=== PATIENT | male | born 1965 | race Caucasian/White ===

== ENCOUNTER 2021-10-23 06:57 | Emergency (ER) | payer SELFPAY ==
[2021-10-23] VITALS (7 sets, daily range): BP systolic 81–141; BP diastolic 58–90; PULSE 84–192; RESP 14–24; TEMP 35.5–36.1; O2SAT 95–97
--- NOTE | ~2021-10-23 | XR_ITS ---
EXAMINATION: XR chest 1V portable EXAM DATE: 10/23/2021 07:41 INDICATION: CP, SOB, tachycardia, smoker, hx heart attack 10yrs ago . TECHNIQUE: Portable AP frontal chest x-ray was obtained. There is no prior study for comparison. FINDINGS: There is cardiomegaly, in particular, prominent right atrial contour. No confluent consolid ation, pneumothorax or pleural effusion suspected. There are no osseous abnormalities identified. IMPRESSION: Cardiomegaly. Reviewed, dictated and finalized at location A. IMPRESSION: Cardiomegaly.
--- NOTE | 2021-10-23 07:13 | ECG_ITS ---
Measurements Intervals [place] Rate: 83 P: 59 NM: 153 QRS: 61 QRSD: 117 T: -62 QT: 431 QTc: 508 Interpretive Statements SINUS RHYTHM INFERIOR MYOCARDIAL INFARCTION , OF INDETERMINATE AGE [40+ ms Q WAVE AND/OR ST/T ABNORMALITY IN II/aVF] T-WAVE CHANGES SUGGESTIVE OFANTEROLATERAL ISCHEMIA [-0.1+ mV T-WAVE IN V3-V6] NO PREVIOUS ECG AVAILABLE FOR COMPARISON Electronically Signed On 10-24-2021 7:02:09 CDT by Radha Wheat M.D.
[2021-10-23 07:32] LABS: Basophils Absolute Auto 0.02 K/mm3 (0.00-0.10); Basophils Percent Auto 0.1 % (0.0-1.0); Hematocrit 42.6 % (40.0-54.0); Hemoglobin 14.2 g/dL (14.0-18.0); Immature Granulocyte Percent A 0.7 % (0.0-0.0); Lymphocytes Percent Auto 21.4 % (18.0-42.0); Mean Corpuscular HGB Conc 33.3 g/dL (32.0-36.0); Mean Corpuscular Hemoglobin 31.6 pg (27.0-31.0); Mean Corpuscular Volume 94.9 fL (78.0-102.0); Mean Platelet Volume 11.9 fl (8.7-11.0); Monocytes Absolute Auto 0.85 K/mm3 (0.10-0.90); Monocytes Percent Auto 6.3 % (2.0-11.0); Neutrophils Absolute Auto 9.7 K/mm3 (1.7-7.2); Neutrophils Percent Auto 71.5 % (50.0-70.0); Platelet Count Result 226 K/mm3 (150-420); Red Blood Count 4.49 M/mm3 (4.70-6.10); Red Cell Distribution Width 13.8 % (11.6-14.4); White Blood Count 13.5 K/mm3 (4.8-10.8)
--- NOTE | 2021-10-23 07:33 | PC.NURSE ---
Pt now saying that he has not eaten anything in 2 days because he's been sick. RN clarifies that pt has been vomiting longer than yesterday. Pt states that he has been vomiting x 2 days. Pt denies diarrhea.
[2021-10-23] MEDS: ASPIRIN 325 MG ENTERIC TABLET PO (07:38)
[2021-10-23] MEDS: dilTIAZem HCl INJ 25 MG/5 ML VIAL 20 MG IV PUSH (07:39)
[2021-10-23] MEDS: SODIUM CHLORIDE 0.9% IV 1,000 ML 999 ML IV CONT (07:42)
[2021-10-23 07:52] LABS: Alanine Aminotransferase 51 U/L (16-63); Albumin Level 3.6 g/dL (3.4-5.0); Alkaline Phosphatase 82 U/L (46-116); Anion Gap 23 mmol/L (8-16); Aspartate Amino Transferase 64 U/L (15-37); Bilirubin,Total 0.8 mg/dL (0.00-1.00); Blood Urea Nitrogen 52 mg/dL (7-18); Calcium 9.8 mg/dL (8.5-10.1); Carbon Dioxide 17 mmol/L (21-32); Chloride 101 mmol/L (98-108); Estimated CRCL calculation 17 ml/min; Estimated Glomerular Filt Rate 14; Glucose 155 mg/dL (70-99); Osmolality Calculated 309 mOsm/kg (285-295); Potassium 4.3 mmol/L (3.5-5.1); Sodium 141 mmol/L (136-145); Total Protein 8.4 g/dL (6.4-8.2)
[2021-10-23 07:54] LABS: Ethanol < 3 mg/dL (0-6)
[2021-10-23 07:56] LABS: NT Pro B Type Natriuretic Pept > 35000 pg/mL (0-125)
[2021-10-23] MEDS: dilTIAZem 100 MG/100 ML 100 MG/100 ML BAG IV CONT (08:00)
[2021-10-23] MEDS: ONDANSETRON INJ 4 MG/2 ML VIAL IV PUSH (08:01)
[2021-10-23] MEDS: SODIUM CHLORIDE 0.9% IV 500 ML 999 ML IV CONT (08:01)
[2021-10-23] MEDS: MIDAZOLAM HCL (*CRX) 2 MG/2 ML VIAL 5 MG IV PUSH (08:06)
--- NOTE | 2021-10-23 08:08 | ECG_ITS ---
Measurements Intervals [place] Rate: 195 P: [place]: 0 QRS: -55 QRSD: 246 T: 93 QT: 330 QTc: 595 Interpretive Statements PROBABLE VENTRICULAR TACHYCARDIA LEFT AXIS DEVIATION [QRS AXIS < -30] INTRAVENTRICULAR CONDUCTION DELAY [130+ ms QRS DURATION NO PREVIOUS ECG AVAILABLE FOR COMPARISON Electronically Signed On 10-24-2021 7:02:52 CDT by Radha Wheat M.D.
--- NOTE | 2021-10-23 08:26 | ED.CHESTPAIN ---
HPI - Chest Pain General Chief Complaint: Chest Pain Stated Complaint: chest pain trouble breathing Time Seen by Provider: 10/23/21 07:02 Source: patient, family, RN notes reviewed and old records reviewed Mode of arrival: ambulatory Limitations: no limitations History of Present Illness complaint: chest pain Pertinent past history: coronary artery disease and prior NV Onset (ago): day(s) (2) Timing of current episode: constant Prior episodes: Yes Onset: during exertion Pain location: left chest Pain radiation: left arm Severity: moderate Pain scale (0-10): 2 Quality: aching, heaviness and dull Relieving factors: nothing Exacerbating factors: nothing Context: non compliance with medication Associated symptoms: nausea and sense of impending doom Treatment prior to arrival: none Risk Factors Coronary artery disease risk factors: smoking history Related Data Home Medications Medication Instructions Recorded Confirmed No Home Medications 10/23/21 10/23/21 Allergies Allergy/AdvReac Type Severity Reaction Status Date / Time bee venom protein (honey bee) Allergy Swelling Verified 10/23/21 07:20 [bees] Review of Systems Review of Systems: All systems reviewed & are unremarkable except as noted in HPI and below PMFSH Past Medical History Medical History Acute coronary syndrome STEMI (ST elevation myocardial infarction) Exam Const: General: cooperative and in distress Nutritional Appearance: well nourished Orientation/consciousness: patient oriented x3 HENMT: Head: normocephalic and atraumatic Ears: hearing grossly normal bilaterally, external ears normal, TM's normal bilaterally and EAC's normal General nose exam: Normal external nose present and Normal nares present Face and sinus: normal facial exam and sinuses nontender Mouth: Yes Normal oral and palatal mucosa present, Yes lip normal, Yes tongue normal, Yes oropharynx normal and Yes moist mucous membranes Teeth and gingiva: dentition normal Throat: posterior oropharynx normal and tonsils normal Eyes: General: appearance normal, both eyes and all related structures Visual Yap: normal visual yap by confrontation Periorbital: periorbital findings normal Eyelids: eyelids normal Conjunctivae: conjunctivae normal Sclera: sclerae normal Cornea: corneas normal Pupils: Equal, round and reactive pupils present EOM: EOMs intact bilaterally Neck: Neck: normal visual inspection, full ROM and no lymphadenopathy Chest: Chest palpation & inspection: normal inspection of the chest Resp: Effort & Inspection: normal respiratory effort Auscultation: clear to auscultation bilaterally Cardio: Jugular venous distension: no JVD Rate: tachycardic Rhythm: abnormal rhythm GI: Inspection: normal to inspection GI Palp: No abdominal tenderness Auscultation: normal bowel sounds : General: Yes bladder normal to inspection Back/Spine/Pelvis: Back: no CVA tenderness Cervical Spine: cervical ROM normal Thoracic/Lumbar Spine: thoraco-lumbar ROM normal Skin: General skin exam: normal color, no rashes or lesions noted, elasticity normal and turgor normal Rashes: no rashes Neuro: General: patient oriented x3, no meningeal signs, no focal motor deficits and CN's II-XI intact bilaterally Cranial nerves: Yes CN's II-XII intact bilaterally, Yes Facial sensation intact/muscles of mastication intact, Yes Intact sense of smell present, Yes Equal, round and reactive pupils present, Yes Normal accommodation reflex present and Yes Bilaterally intact EOM present Cognition (Neuro): normal cognition Speech: normal speech Gait exam (Neuro): Normal gait present Motor exam (neuro): 5/5 motor strength present throughout Extrem: General: normal to inspection, full ROM, capillary refill normal and no pedal edema Psych: Appearance: grossly normal and well kempt Mental Status: mental status grossly normal Affect: Anxi
--- NOTE | 2021-10-23 08:36 | PC.NURSE ---
[facility] at bedside. [facility] transfer line contacted. bed assignment not made at this time. transfer staff confirmed ICU bed is available and will assign boris.
[2021-10-23 08:42] LABS: SARS-CoV-2 RNA PCR Negative (Negative)
[2021-10-23] MEDS: HEPARIN SODIUM 5,000 UNITS/ML VIAL 4000 UNITS IV PUSH (08:45)
--- NOTE | 2021-10-23 08:47 | PC.NURSE ---
[facility] crew will hang heparin drip in aircraft.
[2021-10-23 08:50] LABS: INR 1.1; Prothrombin Time 11.6 Seconds (9.50-12.10)
--- NOTE | 2021-10-23 09:01 | PC.NURSE ---
[facility] called to request bed assignment. the transfer-call staff said the patient cannot lift off until the bed is assigned, states they are waiting for registration to pre-reg this patient. [facility] supervisor contacted and she will speak with registration to expedite this transfer.
--- NOTE | 2021-10-23 09:11 | PC.NURSE ---
Called [facility] again and was told pt still has not been assigned a room. Spoke with packing house supervisor, Hannah, who states that pt's information is not in the computer yet so she cannot assign a bed. Hannah states that she will let the transfer line know when bed is assigned.
--- NOTE | 2021-10-23 09:25 | PC.NURSE ---
Called [facility] once again inquiring about pt's bed status. Was told that pt still has not been assigned a bed. Asked to speak with house wrecker again but was told she was unavailable. Was told that there are beds available, but since pt has not been assigned a room he cannot come yet.
--- NOTE | 2021-10-23 09:34 | PC.NURSE ---
Pt awake and talking with [facility] crew. Pt states that he feels better. Vitals being monitored by [facility] equipment at this time. VSS and [facility] monitor continues to show sinus rhythm. Still awaiting room assignment from [facility].
== END 2021-10-23 10:00 | disposition short-term general hospital (02) ==
PROVIDERS: Emergency Provider Emergency Medicine
DX: I21.3 ST elevation (STEMI) myocardial infarction of unspecified site (principal); I24.9 Acute ischemic heart disease, unspecified; Z20.822 Contact with and (suspected) exposure to COVID-19
CPT/HCPCS: 36415; 71045; 80053; 80307; 83880; 84484; 85025; 85610; 85730; 93005; 96361; 96365; 96366; 96375; 99291; A9270; C9803; J1644; J2250; J2405; J7030; J7040; U0003; U0005